=== PATIENT | female | born 2000 | race Two or more races ===

== ENCOUNTER 2022-12-24 23:30 | Emergency (ER) | payer OTHER ==
[~2022-12-24] VITALS: Ht 165.1 cm; Wt 62.6 kg
[2022-12-25 00:03] VITALS: BP 123/76; TEMP 98.8; O2SAT 98
[2022-12-25] MEDS ORDERED: LIDO28.310 TP (00:04)
[2022-12-25] MEDS ORDERED: IBUP-1953 PO (00:04)
== END 2022-12-25 00:15 | disposition home or self-care (01) ==
LOC: ER 23:33 → EDSEX 23:33 → ER 12-25 00:15
DX: G56.01 Carpal tunnel syndrome, right upper limb (principal); Z79.899 Other long term (current) drug therapy; Z60.2 Problems related to living alone